=== PATIENT | male | born 1970 | race Caucasian/White ===

== ENCOUNTER 2023-03-25 08:50 | Emergency (ER) | payer OTHER ==
[~2023-03-25] VITALS: Ht 180.3 cm; Wt 86.1 kg
[2023-03-25 08:58] VITALS: BP 159/84
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
== END 2023-03-25 09:35 | disposition home or self-care (01) ==
LOC: EDUNIT# 08:50 → ER 08:53
DX: S80.211A Abrasion, right knee, initial encounter (principal); M25.531 Pain in right wrist; F41.9 Anxiety disorder, unspecified; V89.2XXA Person injured in unspecified motor-vehicle accident, traffic, initial encounter; Y92.410 Unspecified street and highway as the place of occurrence of the external cause
CPT/HCPCS: 99282